=== PATIENT | female | born 1950 | race American Indian/Alaskan Native ===

== ENCOUNTER 2021-12-15 06:19 | Outpatient (CLI) | payer MEDICARE, BC, SELFPAY ==
[2021-12-15] MEDS: Inhaler, Assist Device 1 EACH MC (11:23)
[2021-12-15] MEDS: Albuterol HFA 18 GM 200 PUFF INH IH (11:23)
== END 2021-12-15 06:20 | disposition home or self-care (01) ==
LOC: RT 06:19
PROVIDERS: Visit Provider Student in an Organized Health Care Education/Training Program
DX: R06.09 Other forms of dyspnea (principal)
CPT/HCPCS: 94060; 94726; 94729

== ENCOUNTER → 2023-09-14 11:01 | Outpatient (BNVA) | payer MEDICARE, BC, SELFPAY | PROVIDERS: Visit Provider Physician Assistant Surgical | DX: R06.00 Dyspnea, unspecified (principal); J45.909 Unspecified asthma, uncomplicated | CPT/HCPCS: 99214 ==

== ENCOUNTER → 2024-03-12 13:01 | Outpatient (BNVA) | payer MEDICARE, BC, SELFPAY | PROVIDERS: Visit Provider Physician Assistant Surgical | DX: J45.909 Unspecified asthma, uncomplicated (principal); R06.00 Dyspnea, unspecified | CPT/HCPCS: 36415; 99214 ==

== ENCOUNTER 2024-03-12 17:41 | Outpatient (REF) | payer MEDICARE, BC, SELFPAY ==
[2024-03-12 14:57] LABS: Abs Immature Grans 0.02 10^3/uL (0.0-0.06); Absolute Basophil Count 0.05 10^3/uL (0.0-0.2); Absolute Eosinophil Count 0.14 10^3/uL (0.0-0.7); Absolute Lymphocyte Count 1.66 10^3/uL (1.2-3.4); Absolute Monocyte Count 0.53 10^3/uL (0.1-0.8); Absolute Neutrophil Count 4.73 10^3/uL (1.2-6.7); Basophils % 0.7 %; HCT 43.4 % (36.0-46.0); HGB 14.4 g/dL (11.2-15.7); Immature Grans % 0.3 %; Lymphocytes % 23.3 %; MCH 28.9 pg (27.0-33.0); MCHC 33.2 % (32.0-36.0); MCV 87 fL (80-95); MPV 10.9 fL (8.0-11.0); Monocytes % 7.4 %; Neutrophils % 66.3 %; Platelet Count 193 10^3/uL (130-400); RBC 4.98 10^6/uL (3.93-5.22); RDW 13.1 % (11.7-14.6); RDW-SD 41.5 fL; WBC 7.13 10^3/uL (4.4-10.8)
[2024-03-14 07:51] LABS: IgE 20 IU/mL (<158)
== END 2024-03-12 17:42 | disposition home or self-care (01) ==
LOC: LBN 17:41
PROVIDERS: Visit Provider Physician Assistant Surgical
DX: J45.909 Unspecified asthma, uncomplicated (principal)
CPT/HCPCS: 82785; 85025

== ENCOUNTER → 2024-06-14 12:43 | Outpatient (BNVA) | payer MEDICARE, BC, SELFPAY | PROVIDERS: PCP Family Medicine; Visit Provider Physician Assistant Surgical | DX: J45.909 Unspecified asthma, uncomplicated (principal); R06.00 Dyspnea, unspecified | CPT/HCPCS: 36415; 99214 ==

== ENCOUNTER 2024-06-14 15:21 | Outpatient (REF) | payer MEDICARE, BC, SELFPAY ==
[2024-06-14 22:08] LABS: Rheumatoid Factor <8.6 IU/mL (<12.0)
[2024-06-15 09:11] LABS: Cyclic Citrullinated Peptide <2.5 U/mL (<5.0)
[2024-06-15 13:50] LABS: ANA Interpretation Positive (Negative); ANA Titer Pattern 1:80 Speckled
== END 2024-06-14 15:22 | disposition home or self-care (01) ==
LOC: LBN 15:21
PROVIDERS: PCP Family Medicine; Visit Provider Physician Assistant Surgical
DX: J45.909 Unspecified asthma, uncomplicated (principal); R06.00 Dyspnea, unspecified
CPT/HCPCS: 86200; 86038; 86431

== ENCOUNTER 2024-06-25 03:21 | Outpatient (CLI) | payer MEDICARE, BC, SELFPAY ==
[2024-06-25] MEDS: Levalbuterol HFA 15 GM INH 4 PUFF IH (11:28)
[2024-06-25] MEDS: Inhaler, Assist Device 1 EACH MC (11:28)
--- NOTE | 2024-06-26 14:35 | W.PFT ---
Date of service: 06/25/24 Time of Service: 10:02 Pulmonary Function Test Result Indications: Asthma Interpretation Spirometry: No airflow limitation. No significant bronchodilator response. Lung Volumes: Normal lung volumes Diffusion Capacity: Normal diffusion Airway Pressure: Normal airways resistance. Impression Normal pulmonary function testing Clinical Correlation therefore is recommended.
== END 2024-06-26 23:59 | disposition home or self-care (01) ==
LOC: RT 03:21
PROVIDERS: PCP Family Medicine; Visit Provider Physician Assistant Surgical
DX: J45.909 Unspecified asthma, uncomplicated (principal)
CPT/HCPCS: 94060; 94726; 94729

== ENCOUNTER → 2024-12-27 09:36 | Outpatient (BNVA) | payer MEDICARE, SELFPAY | PROVIDERS: PCP Family Medicine; Referring Provider Family Medicine; Visit Provider Physician Assistant Surgical | DX: R06.00 Dyspnea, unspecified (principal); J45.909 Unspecified asthma, uncomplicated | CPT/HCPCS: 99214 ==

== ENCOUNTER → 2025-06-26 12:25 | Outpatient (BNVA) | payer MEDICARE, SELFPAY | PROVIDERS: PCP Family Medicine; Referring Provider Family Medicine; Visit Provider Physician Assistant Surgical | DX: R06.00 Dyspnea, unspecified (principal); J45.909 Unspecified asthma, uncomplicated | CPT/HCPCS: 99214 ==